=== PATIENT | female | born 1990 | race Caucasian/White ===

== ENCOUNTER 2017-08-20 10:23 | Inpatient (IN) | payer OTHER ==
[2017-08-20 11:05] VITALS: BMI 24.7
--- NOTE | 2017-08-20 15:17 | HP ---
COWS - Scale Resting Pulse: 0= MI 80 or Below Sweatin=Flushed/Facial Moisture Restless Observation: 3= Extraneous Movement Pupil Size: 2= Moderately Dilated Bone or Joint Aches: 2= Severe Diffuse Aches Runny Nose/ Eye Tearin= Runny Nose/Eyes GI Upset > 30mins: 3= Vomiting/Diarrhea Tremor Observation: 2= Slight Tremor Visible Yawning Observation: 2= >3x During Session Anxiety or Irritability: 2=Irritable/Anxious Goose Flesh Skin: 0=Smooth Skin COWS Score: 20 Admission ROS S - HPI Chief Complaint: I NEED HELP TO STOP USING HEROIN,XANAX,COCAINE AND MARIJUANA Allergies/Adverse Reactions: Allergies Allergy/AdvReac Type Severity Reaction Status Date / Time No Known Allergies Allergy Verified 08/20/17 14:56 History of Present Illness: THIS 27 YEARS OLD FEMALE WITH HEROIN,XANAX,CCOAINE,MARIJUANA,SEEKING DETOX, WITHDRAWAL SYMPTOM,NEVER BEEN IN DETOX BEFORE SEIZURE LAST 2016 NICOTINE DEPENDENCE WEIGHT LOSS BIPOLAR,PTSD, PELLET OF RIGHT THIGH SINCE 2013 Exam Limitations: No Limitations - Ebola screening Have you traveled outside of the country in the last 21 days: No (N) Have you had contact with anyone from an Ebola affected area: No Have you been sick,other than usual withdrawal symptoms: No Do you have a fever: No - Review of Systems Constitutional: Chills, Diaphoresis, Loss of Appetite, Malaise, Night Sweats, Changes in sleep, Weakness, Unintentional Wgt. Loss EENT: reports: No Symptoms Reported, Tearing, Nose Congestion Respiratory: reports: No Symptoms reported Cardiac: reports: No Symptoms Reported GI: reports: Diarrhea, Nausea, Vomiting, Abdominal cramping : reports: No Symptoms Reported Musculoskeletal: reports: Back Pain, Joint Pain, Muscle Pain, Joint Stiffness Integumentary: reports: Dryness Neuro: reports: Headache, Tremors Endocrine: reports: No Symptoms Reported Hematology: reports: No Symptoms Reported Psychiatric: reports: No Sypmtoms Reported (BIPOLAR,PTSD), Judgement Intact, Mood/Affect Appropiate, Anxious, Depressed Patient History - Patient Medical History Hx Asthma: No Hx Chronic Obstructive Pulmonary Disease (COPD): No Hx Cardiac Disorders: No Hx Hypertension: No Hx Seizures: Yes (Pt states she has a hx of drug related seizures last 1 yr ago. ) Hx Diabetes: No Hx Gastrointestinal Disorders: Yes (acid reflux.) Hx Genitourinary Disorders: No Hx Sexually Transmitted Disorders: No Hx Renal Disease (ESRD): No Hx Thyroid Disease: No Hx Human Immunodeficiency Virus (HIV): No (LAST 05/28 NEGATIVE) Hx Hepatitis C: No Hx Depression: Yes (ANXIETY) Hx Suicide Attempt: Yes (Pt states she tried to cut her wrist 1 yr ago.) Hx Bipolar Disorder: Yes Hx Schizophrenia: No Other Medical History: NO SUICIDAL,NO HOMICIDAL - Patient Surgical History Past Surgical History: No - PPD History Previous Implant?: Yes Documented Results: Negative w/o proof Implanted On Prior [facility] Admission?: No PPD to be Administered?: Yes - Reproductive History Last Menstrual Period: 07/25/17 Patient : No - Smoking Cessation Smoking history: Current every day smoker Have you smoked in the past 12 months: Yes Aproximately how many cigarettes per day: 40 Hx Chewing Tobacco Use: No Initiated information on smoking cessation: Yes 'Breaking Loose' booklet given: 08/20/17 - Substance & Tx. History Hx Alcohol Use: No Hx Substance Use: Yes Substance Use Type: Cocaine, Heroin, Tranquilizers - Substances Abused Heroin Route: Inhalation Frequency: Daily Amount used: 7-10 bags Age of first use: 26 Date of Last Use: 08/20/17 Alprazolam (Xanax) Route: Oral Frequency: 1-3 times last 30 days Amount used: 6mg Age of first use: 20 Date of Last Use: 08/18/17 Crack Route: Smoking Frequency: Daily Amount used: $200-400 Age of first use: 25 Date of Last Use: 08/17/17 Marijuana/Hashish Route: Smoking Frequency: 1-3 times last 30 days Amount used: 1 joint Age of first use: 14 Date of Last Use: 08/20/17 Family Disease History - Family Disease History Family Disease History: Other: Father (ALCOHOL,SOBER), Mother (DSA) Admission Physical Exam [facility] - Vital Signs Vital Signs: Vital Signs - 24 hr 08/20/17 11:01 Temperature 97.1 F L Pulse Rate 58 L Respiratory 18 Rate Blood Pressure 99/60 - Physical General Appearance: Yes: Moderate Distress, Tremorous, Irritable, Sweating, Anxious HEENTM: Yes: Normal ENT Inspection, Normocephalic, CB Respiratory: Yes: Lungs Clear, Normal Breath Sounds Neck: Yes: Within Normal Limits, Supple, Trachea in good position Breast: Yes: Breast Exam Deferred Cardiology: Yes: Within Normal Limits, Regular Rhythm, S1, S2 Abdominal: Yes: Within Normal Limits, Normal Bowel Sounds, Non Tender, Soft Genitourinary: Yes: Within Normal Limits Musculoskeletal: Yes: full range of Motion, Back pain, Joint Stiffness, Muscle Pain Extremities: Yes: Normal Range of Motion, Tremors, Other (PELLET WOUND OF RIGHT THIGH) 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, Fully Oriented, Alert, Motor Strength 5/5 Integumentary: Yes: Within Normal Limits, Dry Lymphatic: Yes: Within Normal Limits - Diagnostic (1) Opioid dependence with withdrawal Current Visit: Yes Status: Acute (2) Cocaine dependence Current Visit: Yes Status: Acute (3) Uncomplicated sedative, hypnotic or anxiolytic withdrawal Current Visit: Yes Status: Acute (4) Cannabis dependence Current Visit: Yes Status: Acute (5) Nicotine dependence Current Visit: Yes Status: Acute (6) Weight loss Current Visit: Yes Status: Acute (7) Bipolar disorder Current Visit: Yes Status: Acute Cleared for Admission [facility] - Detox or Rehab [facility] Level of Care: Medically Managed Detox Regimen/Protocol: Methadone [facility] Breath Alcohol Content Breath Alcohol Content: 0 Urine Pregancy Test - Result Urine Test Results: Negative- NO Line Present Urine Drug Screen - Results Drug Screen Negative: Yes Urine Drug Screen Results: THC-Marijuana, ALEX-Cocaine, OPI-Opiates, BZO- Benzodiazepines
[2017-08-20] MEDS ORDERED: MAGNESIUM CITRATE 300 ML BOTTLE PO PRN (15:33)
[2017-08-20] MEDS ORDERED: NICOTINE POLACRILEX 2 MG GUM BC PRN (15:33)
[2017-08-20] MEDS ORDERED: IBUPROFEN 400 MG TABLET (FP) PO PRN (15:33)
[2017-08-20] MEDS ORDERED: P-EPHED 60MG/TRIPROLIDI 2.5MG TABLET PO PRN (15:33)
[2017-08-20] MEDS ORDERED: LOPERAMIDE HCL 2 MG CAPSULE PO PRN (15:33)
[2017-08-20] MEDS ORDERED: MAG HYDROX/AL HYDROX/SIMETH 30 ML UNIT-DOSE CUP PO PRN (15:33)
[2017-08-20] MEDS ORDERED: MAGNESIUM HYDROX 2400MG/30ML ORAL SUSPENSION 30 ML CUP PO PRN (15:33)
[2017-08-20] MEDS ORDERED: guaiFENesin/D-METHORPHAN HB 10 ML UNIT-DOSE CUPS PO PRN (15:33)
[2017-08-20] MEDS ORDERED: MENTHOL/PHENOL 1 EACH UD MM PRN (15:33)
--- NOTE | 2017-08-20 15:48 | CONSULT ---
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 SEIZURE LAST 2017. NICOTINE DEPENDENCE. WEIGHT LOSS. BIPOLAR,PTSD, . PELLET OF RIGHT THIGH SINCE 2013 Substance Abuse History: Urine Drug Screen Results: THC-Marijuana, ALEX-Cocaine, OPI-Opiates, BZO-Benzodiazepines- Smoking Cessation. Smoking history: Current every day smoker. Have you smoked in the past 12 months: Yes. Aproximately how many cigarettes per day: 40. Hx Chewing Tobacco Use: No. Initiated information on smoking cessation: Yes. 'Breaking Loose' booklet given: . - Substance & Tx. History. Hx Alcohol Use: No. Hx Substance Use: Yes. Substance Use Type: Cocaine, Heroin, Tranquilizers. - Substances Abused. Heroin. Route: Inhalation. Frequency: Daily. Amount used: 7-10 bags. Age of first use: 26. Date of Last Use: 08/20/17. Alprazolam (Xanax). Route: Oral. Frequency: 1-3 times last 30 days. Amount used: 6mg. Age of first use: 20. Date of Last Use: 08/18/17. Crack. Route: Smoking. Frequency: Daily. Amount used: $200-400. Age of first use: 25. Date of Last Use: 08/17/17. * * Marijuana/Hashish. Route: Smoking. Frequency: 1-3 times last 30 days. Amount used: 1 joint. Age of first use: 14. Date of Last Use: Medical History: Patient reports historty of Seizures, weight loss, Psychiatric History: Patient has history of Bipolar disorder with mopst recent psychiatric admission few months ago at [facility] due to Bipolar exacerbation, reports taking prior to admission: Abilify 5mg poqd. Trazodone 150mg po qhs. Zoloft 100mg poqd. Lamictal 100m,g poqd. Denies suicidal and homicidal ideation Physical/Sexual Abuse/Trauma History: Denies, unclear Additional Comment: Urine Drug Screen Results: THC-Marijuana, ALEX-Cocaine, OPI- Opiates, BZO-Benzodiazepines Mental Status Exam - Mental Status Exam Alert and Oriented to: Place, Person Cognitive Function: Fair Patient Appearance: Well Groomed Mood: Anxious Affect: Mood Congruent Patient Behavior: Cooperative Speech Pattern: Appropriate Voice Loudness: Normal Thought Process: Goal Oriented Thought Disorder: Being Controlled Hallucinations: Denies Suicidal Ideation: Denies Homicidal Ideation: Denies Insight/Judgement: Fair Sleep: Difficulty falling asleep Appetite: Fair Muscle strength/Tone: Normal Gait/Station: Normal Additional Comments: Abilify 5mg poqd. Trazodone 150mg po qhs. Zoloft 100mg poqd. Lamictal 100m,g poqd Psychiatric Findings - Problem List ([place] 1, 2,3) (1) Drug-induced mood disorder Current Visit: Yes Status: Acute (2) Bipolar disorder Current Visit: Yes Status: Acute (3) Cannabis dependence Current Visit: Yes Status: Acute (4) Cocaine dependence Current Visit: Yes Status: Acute (5) Nicotine dependence Current Visit: Yes Status: Acute (6) Opioid dependence with withdrawal Current Visit: Yes Status: Acute (7) Uncomplicated sedative, hypnotic or anxiolytic withdrawal Current Visit: Yes Status: Acute - Initial Treatment Plan Initial Treatment Plan: Abilify 5mg poqd. Trazodone 150mg po qhs. Zoloft 100mg poqd. Lamictal 100m,g poqd
[2017-08-20] MEDS ORDERED: METHADONE HCL 10 MG TABLET (FOR DETOX USE ONLY) PO ONE ×2 (16:00→23:00)
[2017-08-20] MEDS: diazePAM 5 MG TABLET PO PRN (17:48)
[2017-08-20] MEDS: NICOTINE 21 MG/24 HOURS TOPICAL PATCH TD SCH (17:52)
[2017-08-20] MEDS ORDERED: MELATONIN 5 MG TABLETS PO PRN (22:00)
[2017-08-20] MEDS: THIAMINE HCL 100 MG TABLET (FP) PO SCH (22:07)
[2017-08-20] MEDS: traZODone HCL 100 MG TABLET (FP) PO SCH (22:07)
[2017-08-20] MEDS: CYCLOBENZAPRINE HCL 10 MG TABLET (FP) PO PRN (22:07)
[2017-08-20] MEDS: cloNIDine HCL 0.1 MG TABLET PO SCH (22:07)
[2017-08-21 02:25] LABS: URINE APPEARANCE SLCLOUDY; URINE BILIRUBIN NEGATIVE (<2.0 mg/dL); URINE BLOOD NEGATIVE (NEGATIVE); URINE COLOR YELLOW; URINE GLUCOSE (UA) NEGATIVE (NEGATIVE); URINE KETONE NEGATIVE (NEGATIVE); URINE LEUK ESTERASE TRACE (NEGATIVE); URINE NITRITE NEGATIVE (NEGATIVE); URINE PROTEIN NEGATIVE (NEGATIVE)
[2017-08-21 02:39] LABS: EPI CELLS RARE /HPF (FEW); URINE BACTERIA RARE /hpf (NONE SEEN)
--- NOTE | 2017-08-21 09:36 | EKG ---
Test Reason : Blood Pressure : / mmHG Vent. Rate : 047 BPM Atrial Rate : 047 BPM P-R Int : 152 ms QRS Dur : 104 ms QT Int : 440 ms P-R-T Axes : 067 054 037 degrees QTc Int : 389 ms SINUS BRADYCARDIA OTHERWISE NORMAL ECG NO PREVIOUS ECGS AVAILABLE Confirmed by CARLA MG MD ([id number]) on 08/21/2017 9:36:27 AM Referred By: Confirmed By:CARLA GM MD
[2017-08-21] MEDS ORDERED: METHADONE HCL 10 MG TABLET (FOR DETOX USE ONLY) PO ONE (10:00)
[2017-08-21 10:04] LABS: CHLORIDE 102 mmol/L (98-107); POTASSIUM 4.1 mmol/L (3.5-5.1); SODIUM 140 mmol/L (136-145)
[2017-08-21 10:05] LABS: HEMATOCRIT 41.3 % (32.4-45.2); MCH 34.2 pg (25.7-33.7); MCHC 33.9 g/dl (32.0-36.0); MEAN CELL VOLUME 100.9 fl (80-96); MEAN PLT VOLUME 10.8 fl (7.5-11.1); PLATELET COUNT 199 K/MM3 (134-434); RDW 13.8 % (11.6-15.6); WHITE BLOOD COUNT 10.9 K/mm3 (4.0-10.0)
[2017-08-21] MEDS: ARIPiprazole 5 MG TABLET (FP) PO SCH (10:21)
[2017-08-21] MEDS: SERTRALINE HCL 50 MG TABLET (FP) PO SCH (10:21)
[2017-08-21 10:22] LABS: ALBUMIN 4.3 g/dl (3.4-5.0); ALK PHOS 50 U/L (45-117); ANION GAP 7 (8-16); BILIRUBIN,TOTAL 0.2 mg/dL (0.2-1.0); BLOOD UREA NITROGEN 14 mg/dL (7-18); CALCIUM 9.1 mg/dL (8.5-10.1); CO2 31 mmol/L (21-32); CREATININE 0.9 mg/dL (0.55-1.02); GLUCOSE,RANDOM 74 mg/dL (74-106); SGOT/AST 18 U/L (15-37); SGPT/ALT 18 U/L (12-78); TOT PROT 7.1 g/dl (6.4-8.2)
[2017-08-21] MEDS: PANTOPRAZOLE 40 MG TABLET (FP) PO SCH (10:22)
[2017-08-21] MEDS: cloNIDine HCL 0.1 MG TABLET PO SCH ×2 (10:22→22:18)
[2017-08-21] MEDS: NICOTINE 21 MG/24 HOURS TOPICAL PATCH TD SCH (10:22)
[2017-08-21] MEDS: PRENATAL VITAMINS W/ FOLIC ACID TABLET (FP) PO SCH (10:22)
[2017-08-21] MEDS: lamoTRIgine 100 MG TABLET (FP) PO SCH (10:22)
--- NOTE | 2017-08-21 10:29 | PN ---
S COWS - Scale Resting Pulse: 1= NM 81-100 Sweatin= Chills/Flushing Restless Observation: 1= Difficult to Sit Still Pupil Size: 1= Pupils >than Normal Bone or Joint Aches: 1= Mild Discomfort Runny Nose/ Eye Tearin= Nasal Congestion GI Upset > 30mins: 2= Nausea/Diarrhea Tremor Observation of Outstretched Hands: 1= Tremor [place], Not Seen Yawning Observation: 1= 1-2x During Session Anxiety or Irritability: 2=Irritable/Anxious Goose Flesh Skin: 0=Smooth Skin COWS Score: 12 S Progress Note (SOAP) Subjective: nausea, sweats, interrutpedsleep, anxiety, tremros Objective: 08/21/17 10:29 Vital Signs - 24 hr 08/20/17 08/20/17 08/20/17 11:01 18:42 22:04 Temperature 97.1 F L 98.2 F 99.0 F Pulse Rate 58 L 119 H 47 L Respiratory 18 18 20 Rate Blood Pressure 99/60 107/58 124/72 08/21/17 08/21/17 08/21/17 00:30 03:30 06:00 Temperature 97.9 F Pulse Rate 46 L Respiratory 18 18 18 Rate Blood Pressure 106/55 08/21/17 10:08 Temperature 97.9 F Pulse Rate 47 L Respiratory 16 Rate Blood Pressure 106/51 Laboratory Tests 08/21/17 08/21/17 08/21/17 00:05 06:00 06:00 WBC 10.9 H RBC 4.10 Hgb 14.0 Hct 41.3 MCV 100.9 H MCH 34.2 H MCHC 33.9 RDW 13.8 Plt Count 199 MPV 10.8 Sodium 140 Potassium 4.1 Chloride 102 Carbon Dioxide 31 Anion Gap 7 L BUN 14 Creatinine 0.9 Creat Clearance w eGFR > 60 Random Glucose 74 Calcium 9.1 Total Bilirubin 0.2 AST 18 ALT 18 Alkaline Phosphatase 50 Total Protein 7.1 Albumin 4.3 Urine Color Yellow Urine Appearance Slcloudy Urine pH 5.0 Ur Specific [place] 1.017 Urine Protein Negative Urine Glucose (UA) Negative Urine Ketones Negative Urine Blood Negative Urine Nitrite Negative Urine Bilirubin Negative Urine Urobilinogen 2.0 H Ur Leukocyte Esterase Trace Urine WBC (Auto) 2 Urine RBC (Auto) 1 Ur Epithelial Cells Rare Urine Bacteria Rare Assessment: 08/21/17 10:29 withdrawal sx, cont detox, fluids, encourage ambualtion
[2017-08-21] MEDS: diazePAM 5 MG TABLET PO PRN ×3 (12:27→22:18)
[2017-08-21] MEDS: ACETAMINOPHEN 325 MG TABLET (FP) PO PRN (17:49)
[2017-08-21] MEDS: CYCLOBENZAPRINE HCL 10 MG TABLET (FP) PO PRN (22:18)
[2017-08-21] MEDS: traZODone HCL 100 MG TABLET (FP) PO SCH (22:18)
[2017-08-21] MEDS: THIAMINE HCL 100 MG TABLET (FP) PO SCH (22:18)
[2017-08-22] MEDS ORDERED: METHADONE HCL 5 MG TABLET (FOR DETOX USE ONLY) PO ONE (10:00)
[2017-08-22] MEDS: SERTRALINE HCL 50 MG TABLET (FP) PO SCH (10:55)
[2017-08-22] MEDS: PRENATAL VITAMINS W/ FOLIC ACID TABLET (FP) PO SCH (10:55)
[2017-08-22] MEDS: lamoTRIgine 100 MG TABLET (FP) PO SCH (10:55)
[2017-08-22] MEDS: NICOTINE 21 MG/24 HOURS TOPICAL PATCH TD SCH (10:56)
[2017-08-22] MEDS: cloNIDine HCL 0.1 MG TABLET PO SCH ×2 (10:56→22:12)
[2017-08-22] MEDS: PANTOPRAZOLE 40 MG TABLET (FP) PO SCH (10:56)
[2017-08-22] MEDS: ARIPiprazole 5 MG TABLET (FP) PO SCH (10:56)
[2017-08-22] MEDS: diazePAM 5 MG TABLET PO PRN ×2 (14:09→22:12)
--- NOTE | 2017-08-22 15:30 | PN ---
S CIWA - CIWA Score Nausea/Vomitin Muscle Tremors: 3 Anxiety: 3 Agitation: 3 Paroxysmal Sweats: 1-Minimal Palms Moist Orientation: 0-Oriented Tacttile Disturbances: 1-Very Mild Itch/Numbness Auditory Disturbances: 1-Very Mild Visual Disturbances: 0-None Headache: 2-Mild CIWA-Ar Total Score: 17 BHS COWS - Scale Resting Pulse: 0= MI 80 or Below Sweatin= Chills/Flushing Restless Observation: 3= Extraneous Movement Pupil Size: 1= Pupils >than Normal Bone or Joint Aches: 2= Severe Diffuse Aches Runny Nose/ Eye Tearin= Runny Nose/Eyes GI Upset > 30mins: 2= Nausea/Diarrhea Tremor Observation of Outstretched Hands: 2= Slight Tremor Visible Yawning Observation: 1= 1-2x During Session Anxiety or Irritability: 2=Irritable/Anxious Goose Flesh Skin: 0=Smooth Skin COWS Score: 16 S Progress Note (SOAP) Subjective: ALERT,IRRITABLE,ANXIOUS,INTERRUPTED SLEEP,PAIN IN THE BODY AND BACK Objective: 08/22/17 15:29 Vital Signs Temperature 97.1 F L 08/22/17 11:08 Pulse Rate 82 08/22/17 11:08 Respiratory Rate 20 08/22/17 11:08 Blood Pressure 115/72 08/22/17 11:08 O2 Sat by Pulse Oximetry (%) Laboratory Last Values WBC 10.9 K/mm3 (4.0-10.0) H 08/21/17 06:00 RBC 4.10 M/mm3 (3.60-5.2) 08/21/17 06:00 Hgb 14.0 GM/dL (10.7-15.3) 08/21/17 06:00 Hct 41.3 % (32.4-45.2) 08/21/17 06:00 MCV 100.9 fl (80-96) H 08/21/17 06:00 MCH 34.2 pg (25.7-33.7) H 08/21/17 06:00 MCHC 33.9 g/dl (32.0-36.0) 08/21/17 06:00 RDW 13.8 % (11.6-15.6) 08/21/17 06:00 Plt Count 199 K/MM3 (134-434) 08/21/17 06:00 MPV 10.8 fl (7.5-11.1) 08/21/17 06:00 Sodium 140 mmol/L (136-145) 08/21/17 06:00 Potassium 4.1 mmol/L (3.5-5.1) 08/21/17 06:00 Chloride 102 mmol/L (98-107) 08/21/17 06:00 Carbon Dioxide 31 mmol/L (21-32) 08/21/17 06:00 Anion Gap 7 (8-16) L 08/21/17 06:00 BUN 14 mg/dL (7-18) 08/21/17 06:00 Creatinine 0.9 mg/dL (0.55-1.02) 08/21/17 06:00 Creat Clearance w eGFR > 60 (>60) 08/21/17 06:00 Random Glucose 74 mg/dL (74-106) 08/21/17 06:00 Calcium 9.1 mg/dL (8.5-10.1) 08/21/17 06:00 Total Bilirubin 0.2 mg/dL (0.2-1.0) 08/21/17 06:00 AST 18 U/L (15-37) 08/21/17 06:00 ALT 18 U/L (12-78) 08/21/17 06:00 Alkaline Phosphatase 50 U/L (45-117) 08/21/17 06:00 Total Protein 7.1 g/dl (6.4-8.2) 08/21/17 06:00 Albumin 4.3 g/dl (3.4-5.0) 08/21/17 06:00 Urine Color Yellow 08/21/17 00:05 Urine Appearance Slcloudy 08/21/17 00:05 Urine pH 5.0 (5.0-8.0) 08/21/17 00:05 Ur Specific [place] 1.017 (1.001-1.035) 08/21/17 00:05 Urine Protein Negative (NEGATIVE) 08/21/17 00:05 Urine Glucose (UA) Negative (NEGATIVE) 08/21/17 00:05 Urine Ketones Negative (NEGATIVE) 08/21/17 00:05 Urine Blood Negative (NEGATIVE) 08/21/17 00:05 Urine Nitrite Negative (NEGATIVE) 08/21/17 00:05 Urine Bilirubin Negative (<2.0 mg/dL) 08/21/17 00:05 Urine Urobilinogen 2.0 mg/dL (0.2-1.0) H 08/21/17 00:05 Ur Leukocyte Esterase Trace (NEGATIVE) 08/21/17 00:05 Urine WBC (Auto) 2 /hpf (3-5) 08/21/17 00:05 Urine RBC (Auto) 1 /hpf (0-3) 08/21/17 00:05 Ur Epithelial Cells Rare /HPF (FEW) 08/21/17 00:05 Urine Bacteria Rare /hpf (NONE SEEN) 08/21/17 00:05 RPR Titer Nonreactive (NONREACTIVE) 08/21/17 06:00 Assessment: 08/22/17 15:30 WITHDRAWAL SYMPTOM Plan: CONTINUE DETOX
[2017-08-22] MEDS: CYCLOBENZAPRINE HCL 10 MG TABLET (FP) PO PRN (22:12)
[2017-08-22] MEDS: THIAMINE HCL 100 MG TABLET (FP) PO SCH (22:12)
[2017-08-22] MEDS: traZODone HCL 100 MG TABLET (FP) PO SCH (22:12)
[2017-08-23] MEDS ORDERED: METHADONE HCL 5 MG TABLET (FOR DETOX USE ONLY) PO ONE (10:00)
[2017-08-23] MEDS: SERTRALINE HCL 50 MG TABLET (FP) PO SCH (10:53)
[2017-08-23] MEDS: ARIPiprazole 5 MG TABLET (FP) PO SCH (10:54)
[2017-08-23] MEDS: cloNIDine HCL 0.1 MG TABLET PO SCH ×2 (10:54→22:47)
[2017-08-23] MEDS: lamoTRIgine 100 MG TABLET (FP) PO SCH (10:54)
[2017-08-23] MEDS: PRENATAL VITAMINS W/ FOLIC ACID TABLET (FP) PO SCH (10:54)
[2017-08-23] MEDS: PANTOPRAZOLE 40 MG TABLET (FP) PO SCH (10:54)
[2017-08-23] MEDS: NICOTINE 21 MG/24 HOURS TOPICAL PATCH TD SCH (10:55)
[2017-08-23] MEDS: diazePAM 5 MG TABLET PO PRN (10:56)
--- NOTE | 2017-08-23 13:40 | PN ---
BHS Progress Note (SOAP) Subjective: joint pain muscle aches sweat tremor anxiety restlessness stuffy nose Objective: 08/23/17 13:39 Vital Signs Temperature 97.9 F 08/23/17 12:13 Pulse Rate 61 08/23/17 12:13 Respiratory Rate 18 08/23/17 12:13 Blood Pressure 97/57 08/23/17 12:13 O2 Sat by Pulse Oximetry (%) Laboratory Last Values WBC 10.9 K/mm3 (4.0-10.0) H 08/21/17 06:00 RBC 4.10 M/mm3 (3.60-5.2) 08/21/17 06:00 Hgb 14.0 GM/dL (10.7-15.3) 08/21/17 06:00 Hct 41.3 % (32.4-45.2) 08/21/17 06:00 MCV 100.9 fl (80-96) H 08/21/17 06:00 MCH 34.2 pg (25.7-33.7) H 08/21/17 06:00 MCHC 33.9 g/dl (32.0-36.0) 08/21/17 06:00 RDW 13.8 % (11.6-15.6) 08/21/17 06:00 Plt Count 199 K/MM3 (134-434) 08/21/17 06:00 MPV 10.8 fl (7.5-11.1) 08/21/17 06:00 Sodium 140 mmol/L (136-145) 08/21/17 06:00 Potassium 4.1 mmol/L (3.5-5.1) 08/21/17 06:00 Chloride 102 mmol/L (98-107) 08/21/17 06:00 Carbon Dioxide 31 mmol/L (21-32) 08/21/17 06:00 Anion Gap 7 (8-16) L 08/21/17 06:00 BUN 14 mg/dL (7-18) 08/21/17 06:00 Creatinine 0.9 mg/dL (0.55-1.02) 08/21/17 06:00 Creat Clearance w eGFR > 60 (>60) 08/21/17 06:00 Random Glucose 74 mg/dL (74-106) 08/21/17 06:00 Calcium 9.1 mg/dL (8.5-10.1) 08/21/17 06:00 Total Bilirubin 0.2 mg/dL (0.2-1.0) 08/21/17 06:00 AST 18 U/L (15-37) 08/21/17 06:00 ALT 18 U/L (12-78) 08/21/17 06:00 Alkaline Phosphatase 50 U/L (45-117) 08/21/17 06:00 Total Protein 7.1 g/dl (6.4-8.2) 08/21/17 06:00 Albumin 4.3 g/dl (3.4-5.0) 08/21/17 06:00 Urine Color Yellow 08/21/17 00:05 Urine Appearance Slcloudy 08/21/17 00:05 Urine pH 5.0 (5.0-8.0) 08/21/17 00:05 Ur Specific [place] 1.017 (1.001-1.035) 08/21/17 00:05 Urine Protein Negative (NEGATIVE) 08/21/17 00:05 Urine Glucose (UA) Negative (NEGATIVE) 08/21/17 00:05 Urine Ketones Negative (NEGATIVE) 08/21/17 00:05 Urine Blood Negative (NEGATIVE) 08/21/17 00:05 Urine Nitrite Negative (NEGATIVE) 08/21/17 00:05 Urine Bilirubin Negative (<2.0 mg/dL) 08/21/17 00:05 Urine Urobilinogen 2.0 mg/dL (0.2-1.0) H 08/21/17 00:05 Ur Leukocyte Esterase Trace (NEGATIVE) 08/21/17 00:05 Urine WBC (Auto) 2 /hpf (3-5) 08/21/17 00:05 Urine RBC (Auto) 1 /hpf (0-3) 08/21/17 00:05 Ur Epithelial Cells Rare /HPF (FEW) 08/21/17 00:05 Urine Bacteria Rare /hpf (NONE SEEN) 08/21/17 00:05 RPR Titer Nonreactive (NONREACTIVE) 08/21/17 06:00 lab noted Assessment: 08/23/17 13:39 withdrawal sx Plan: continue detox
[2017-08-23] MEDS: ACETAMINOPHEN 325 MG TABLET (FP) PO PRN (17:51)
[2017-08-23] MEDS: hydrOXYzine PAMOATE 50 MG CAPSULE (FP) PO PRN (17:52)
[2017-08-23] MEDS: traZODone HCL 100 MG TABLET (FP) PO SCH (22:28)
[2017-08-23] MEDS: THIAMINE HCL 100 MG TABLET (FP) PO SCH (22:28)
[2017-08-23] MEDS: CYCLOBENZAPRINE HCL 10 MG TABLET (FP) PO PRN (22:28)
[2017-08-24] MEDS ORDERED: METHADONE HCL 10 MG TABLET (FOR DETOX USE ONLY) PO ONE (10:00)
[2017-08-24] MEDS: PRENATAL VITAMINS W/ FOLIC ACID TABLET (FP) PO SCH (10:19)
[2017-08-24] MEDS: PANTOPRAZOLE 40 MG TABLET (FP) PO SCH (10:19)
[2017-08-24] MEDS: ARIPiprazole 5 MG TABLET (FP) PO SCH (10:19)
[2017-08-24] MEDS: cloNIDine HCL 0.1 MG TABLET PO SCH ×2 (10:19→22:15)
[2017-08-24] MEDS: SERTRALINE HCL 50 MG TABLET (FP) PO SCH (10:19)
[2017-08-24] MEDS: NICOTINE 21 MG/24 HOURS TOPICAL PATCH TD SCH (10:19)
[2017-08-24] MEDS: lamoTRIgine 100 MG TABLET (FP) PO SCH (10:19)
--- NOTE | 2017-08-24 12:20 | PN ---
BHS Progress Note (SOAP) Subjective: Sleep disturbance Objective: 08/24/17 12:19 A & O x 3 Vital Signs Temperature 97.9 F 08/24/17 10:19 Pulse Rate 63 08/24/17 10:19 Respiratory Rate 18 08/24/17 10:19 Blood Pressure 95/56 08/24/17 10:19 O2 Sat by Pulse Oximetry (%) denies dizziness Assessment: 08/24/17 12:20 withdrawal sx Plan: continue detox
--- NOTE | 2017-08-24 12:45 | EKG ---
Test Reason : Blood Pressure : / mmHG Vent. Rate : 043 BPM Atrial Rate : 043 BPM P-R Int : 154 ms QRS Dur : 094 ms QT Int : 460 ms P-R-T Axes : 065 053 048 degrees QTc Int : 388 ms MARKED SINUS BRADYCARDIA ABNORMAL ECG WHEN COMPARED WITH ECG OF 20-AUG-2017 17:58, NONSPECIFIC T WAVE ABNORMALITY NO LONGER EVIDENT IN ANTERIOR LEADS Confirmed by ALEX FRANCO MD ([id number]) on 08/24/2017 12:45:32 PM Referred By: Confirmed By:ALEX FRANCO MD
[2017-08-24] MEDS: THIAMINE HCL 100 MG TABLET (FP) PO SCH (22:15)
[2017-08-24] MEDS: traZODone HCL 100 MG TABLET (FP) PO SCH (22:15)
[2017-08-24] MEDS: CYCLOBENZAPRINE HCL 10 MG TABLET (FP) PO PRN (22:15)
[2017-08-24] MEDS: hydrOXYzine PAMOATE 50 MG CAPSULE (FP) PO PRN (22:16)
[2017-08-24] MEDS: ACETAMINOPHEN 325 MG TABLET (FP) PO PRN (22:16)
[2017-08-25] MEDS ORDERED: METHADONE HCL 5 MG TABLET (FOR DETOX USE ONLY) PO ONE (06:00)
[2017-08-25] MEDS: lamoTRIgine 100 MG TABLET (FP) PO SCH (09:33)
[2017-08-25] MEDS: SERTRALINE HCL 50 MG TABLET (FP) PO SCH (09:33)
[2017-08-25] MEDS: PRENATAL VITAMINS W/ FOLIC ACID TABLET (FP) PO SCH (09:34)
[2017-08-25] MEDS: PANTOPRAZOLE 40 MG TABLET (FP) PO SCH (09:34)
[2017-08-25] MEDS: ARIPiprazole 5 MG TABLET (FP) PO SCH (09:34)
[2017-08-25 10:19] VITALS: BP 118/64; PULSE 78; TEMP 98
--- NOTE | 2017-08-25 10:24 | DS ---
[facility] Detox Discharge Summary Admission Date: 08/20/17 Discharge Date: 08/25/17 - History Present History: Opioid Dependence Additional Comments: 27 years old female admitted on 08/20/17 for opioid detox completed detox regimen tolerated well patient denies opioid withdrawal sx alert oriented x 3 no acute distress patient agrees to go to [facility] for medical and psychuiatric follow up - Physical Exam Results Vital Signs: Vital Signs Temperature 98 F 08/25/17 10:19 Pulse Rate 78 08/25/17 10:19 Respiratory Rate 18 08/25/17 10:19 Blood Pressure 118/64 08/25/17 10:19 O2 Sat by Pulse Oximetry (%) Pertinent Admission Physical Exam Findings: withdrawal sx Vital Signs Temperature 98 F 08/25/17 10:19 Pulse Rate 78 08/25/17 10:19 Respiratory Rate 18 08/25/17 10:19 Blood Pressure 118/64 08/25/17 10:19 O2 Sat by Pulse Oximetry (%) Laboratory Last Values WBC 10.9 K/mm3 (4.0-10.0) H 08/21/17 06:00 RBC 4.10 M/mm3 (3.60-5.2) 08/21/17 06:00 Hgb 14.0 GM/dL (10.7-15.3) 08/21/17 06:00 Hct 41.3 % (32.4-45.2) 08/21/17 06:00 MCV 100.9 fl (80-96) H 08/21/17 06:00 MCH 34.2 pg (25.7-33.7) H 08/21/17 06:00 MCHC 33.9 g/dl (32.0-36.0) 08/21/17 06:00 RDW 13.8 % (11.6-15.6) 08/21/17 06:00 Plt Count 199 K/MM3 (134-434) 08/21/17 06:00 MPV 10.8 fl (7.5-11.1) 08/21/17 06:00 Sodium 140 mmol/L (136-145) 08/21/17 06:00 Potassium 4.1 mmol/L (3.5-5.1) 08/21/17 06:00 Chloride 102 mmol/L (98-107) 08/21/17 06:00 Carbon Dioxide 31 mmol/L (21-32) 08/21/17 06:00 Anion Gap 7 (8-16) L 08/21/17 06:00 BUN 14 mg/dL (7-18) 08/21/17 06:00 Creatinine 0.9 mg/dL (0.55-1.02) 08/21/17 06:00 Creat Clearance w eGFR > 60 (>60) 08/21/17 06:00 Random Glucose 74 mg/dL (74-106) 08/21/17 06:00 Calcium 9.1 mg/dL (8.5-10.1) 08/21/17 06:00 Total Bilirubin 0.2 mg/dL (0.2-1.0) 08/21/17 06:00 AST 18 U/L (15-37) 08/21/17 06:00 ALT 18 U/L (12-78) 08/21/17 06:00 Alkaline Phosphatase 50 U/L (45-117) 08/21/17 06:00 Total Protein 7.1 g/dl (6.4-8.2) 08/21/17 06:00 Albumin 4.3 g/dl (3.4-5.0) 08/21/17 06:00 Urine Color Yellow 08/21/17 00:05 Urine Appearance Slcloudy 08/21/17 00:05 Urine pH 5.0 (5.0-8.0) 08/21/17 00:05 Ur Specific [place] 1.017 (1.001-1.035) 08/21/17 00:05 Urine Protein Negative (NEGATIVE) 08/21/17 00:05 Urine Glucose (UA) Negative (NEGATIVE) 08/21/17 00:05 Urine Ketones Negative (NEGATIVE) 08/21/17 00:05 Urine Blood Negative (NEGATIVE) 08/21/17 00:05 Urine Nitrite Negative (NEGATIVE) 08/21/17 00:05 Urine Bilirubin Negative (<2.0 mg/dL) 08/21/17 00:05 Urine Urobilinogen 2.0 mg/dL (0.2-1.0) H 08/21/17 00:05 Ur Leukocyte Esterase Trace (NEGATIVE) 08/21/17 00:05 Urine WBC (Auto) 2 /hpf (3-5) 08/21/17 00:05 Urine RBC (Auto) 1 /hpf (0-3) 08/21/17 00:05 Ur Epithelial Cells Rare /HPF (FEW) 08/21/17 00:05 Urine Bacteria Rare /hpf (NONE SEEN) 08/21/17 00:05 RPR Titer Nonreactive (NONREACTIVE) 08/21/17 06:00 lab noted - Treatment Hospital Course: Detox Protocol Followed, Detoxed Safely, Responded well, Discharged Condition Good, Rehab Referral Accepted Patient has Accepted a Rehab Referral to: [facility] - Medication Discharge Medications: Ambulatory Orders Aripiprazole [Abilify -] 5 mg PO DAILY #30 tablet 08/20/17 Lamotrigine [LaMICtal -] 100 mg PO DAILY #30 tablet 08/20/17 Sertraline HCl [Zoloft -] 100 mg PO DAILY #30 tablet 08/20/17 Trazodone HCl 100 mg PO HS #30 tablet 08/20/17 Omeprazole Magnesium [Prilosec Otc] 20 mg PO DAILY #30 tablet. 08/25/17 - Diagnosis (1) Bipolar disorder Current Visit: Yes Status: Suspected Qualifiers: Active/Remission status: in partial remission Most recent bipolar episode type: mixed Qualified Code(s): F31.77 - Bipolar disorder, in partial remission , most recent episode mixed (2) Nicotine dependence Current Visit: Yes Status: Acute Qualifiers: Nicotine product type: cigarettes Substance use status: in withdrawal Qualified Code(s): F17.213 - Nicotine dependence, cigarettes, with withdrawal (3) Opioid dependence with withdrawal Current Visit: Yes Status: Acute - AMA Did Patient Leave Against Medical Advice: No
== END 2017-08-25 09:40 | disposition home or self-care (01) | DRG 773 ==
LOC: YASAS 10:23 → Y6N 15:24
PROVIDERS: ADMIT Internal Medicine; ATTEND Internal Medicine
PROC: HZ2ZZZZ Detoxification Services for Substance Abuse Treatment (ICD-10-PCS; principal; 2017-08-20)
DX: F11.23 Opioid dependence with withdrawal (principal); F13.230 Sedative, hypnotic or anxiolytic dependence with withdrawal, uncomplicated; F14.20 Cocaine dependence, uncomplicated; F12.20 Cannabis dependence, uncomplicated; F17.213 Nicotine dependence, cigarettes, with withdrawal; F31.77 Bipolar disorder, in partial remission, most recent episode mixed; F19.24 Other psychoactive substance dependence with psychoactive substance-induced mood disorder; R63.4 Abnormal weight loss; Z68.24 Body mass index [BMI] 24.0-24.9, adult; Z91.5 Personal history of self-harm; Z86.69 Personal history of other diseases of the nervous system and sense organs
CPT/HCPCS: 36415; 80053; 81003; 81015; 85027; 86593; 93005; 93010; J0735

== ENCOUNTER 2018-01-17 11:12 | Inpatient (IN) | payer OTHER ==
[2018-01-17 13:21] VITALS: BMI 26.8
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
[2018-01-17] MEDS ORDERED: MAG HYDROX/AL HYDROX/SIMETH 30 ML UNIT-DOSE CUP PO PRN (17:29)
[2018-01-17] MEDS ORDERED: guaiFENesin/D-METHORPHAN HB 10 ML UNIT-DOSE CUPS PO PRN (17:29)
[2018-01-17] MEDS ORDERED: MAGNESIUM HYDROX 2400MG/30ML ORAL SUSPENSION 30 ML CUP PO PRN (17:29)
[2018-01-17] MEDS ORDERED: IBUPROFEN 400 MG TABLET (FP) PO PRN (17:29)
[2018-01-17] MEDS ORDERED: MAGNESIUM CITRATE 300 ML BOTTLE PO PRN (17:29)
[2018-01-17] MEDS ORDERED: MENTHOL/PHENOL 1 EACH UD MM PRN (17:29)
[2018-01-17] MEDS ORDERED: P-EPHED 60MG/TRIPROLIDI 2.5MG TABLET PO PRN (17:29)
[2018-01-17] MEDS ORDERED: ACETAMINOPHEN 325 MG TABLET (FP) PO PRN (17:29)
[2018-01-17] MEDS ORDERED: diazePAM 5 MG TABLET PO ONE (17:29)
[2018-01-17] MEDS ORDERED: LOPERAMIDE HCL 2 MG CAPSULE PO PRN (17:29)
[2018-01-17] MEDS: NICOTINE 21 MG/24 HOURS TOPICAL PATCH TD SCH (18:29)
[2018-01-17 21:43] LABS: URINE APPEARANCE CLEAR; URINE BILIRUBIN NEGATIVE (<2.0 mg/dL); URINE COLOR STRAW; URINE GLUCOSE (UA) NEGATIVE (NEGATIVE); URINE KETONE NEGATIVE (NEGATIVE); URINE LEUK ESTERASE NEGATIVE (NEGATIVE); URINE NITRITE NEGATIVE (NEGATIVE); URINE PROTEIN NEGATIVE (NEGATIVE); URINE UROBILINOGEN NEGATIVE mg/dL (0.2-1.0)
[2018-01-17] MEDS ORDERED: MELATONIN 5 MG TABLETS PO PRN (22:00)
[2018-01-17] MEDS: THIAMINE HCL 100 MG TABLET (FP) PO SCH (22:47)
[2018-01-17] MEDS: diazePAM 5 MG TABLET PO SCH (22:47)
[2018-01-18] MEDS: diazePAM 5 MG TABLET PO SCH ×3 (05:12→22:08)
[2018-01-18 10:14] LABS: HEMATOCRIT 41.1 % (32.4-45.2); HEMOGLOBIN 13.8 GM/dL (10.7-15.3); MCH 32.8 pg (25.7-33.7); MCHC 33.5 g/dl (32.0-36.0); MEAN CELL VOLUME 98.1 fl (80-96); MEAN PLT VOLUME 9.1 fl (7.5-11.1); PLATELET COUNT 220 K/MM3 (134-434); RBC 4.19 M/mm3 (3.60-5.2); RDW 13.7 % (11.6-15.6)
[2018-01-18] MEDS: PRENATAL VITAMINS W/ FOLIC ACID TABLET (FP) PO SCH (10:16)
[2018-01-18] MEDS: NICOTINE POLACRILEX 4 MG GUM BC PRN ×3 (10:16→21:06)
[2018-01-18] MEDS: NICOTINE 21 MG/24 HOURS TOPICAL PATCH TD SCH (10:16)
[2018-01-18] MEDS: diazePAM 5 MG TABLET PO PRN (10:17)
[2018-01-18 10:24] LABS: ALBUMIN 3.4 g/dl (3.4-5.0); ANION GAP 8 MMOL/L (8-16); BLOOD UREA NITROGEN 9 mg/dL (7-18); CALCIUM 8.6 mg/dL (8.5-10.1); CHLORIDE 106 mmol/L (98-107); CO2 28 mmol/L (21-32); CREATININE 0.8 mg/dL (0.55-1.02); GLUCOSE,RANDOM 81 mg/dL (74-106); POTASSIUM 4.1 mmol/L (3.5-5.1); SGOT/AST 14 U/L (15-37); SGPT/ALT 15 U/L (12-78); SODIUM 142 mmol/L (136-145)
[2018-01-18 10:26] LABS: ALK PHOS 46 U/L (45-117); BILIRUBIN,TOTAL 0.4 mg/dL (0.2-1.0)
--- NOTE | 2018-01-18 11:23 | EKG ---
Test Reason : Blood Pressure : / mmHG Vent. Rate : 085 BPM Atrial Rate : 085 BPM P-R Int : 168 ms QRS Dur : 104 ms QT Int : 374 ms P-R-T Axes : 057 048 047 degrees QTc Int : 445 ms NORMAL SINUS RHYTHM NORMAL ECG WHEN COMPARED WITH ECG OF 21-AUG-2017 09:00, VENT. RATE HAS INCREASED BY 42 BPM Confirmed by JACEK LAI MD ([id number]) on 01/18/2018 11:22:57 AM Referred By: Confirmed By:JACEK LAI MD
--- NOTE | 2018-01-18 13:41 | PN ---
[facility] CIWA - CIWA Score Nausea/Vomitin-Mild Nausea/No Vomiting Muscle Tremors: 4-Moderate,w/Arms Extend Anxiety: 3 Agitation: 3 Paroxysmal Sweats: 1-Minimal Palms Moist Orientation: 0-Oriented Tacttile Disturbances: 1-Very Mild Itch/Numbness Auditory Disturbances: 1-Very Mild Visual Disturbances: 0-None Headache: 0-None Present CIWA-Ar Total Score: 14 BHS Progress Note (SOAP) Subjective: sweat tremor anxiety restlessness trouble sitting still for art therapy Objective: 01/18/18 13:42 alcohol and benzo withdrawal sx Vital Signs Temperature 98.2 F 01/18/18 13:24 Pulse Rate 67 01/18/18 13:24 Respiratory Rate 18 01/18/18 13:24 Blood Pressure 120/56 01/18/18 13:24 O2 Sat by Pulse Oximetry (%) Laboratory Last Values WBC 7.0 K/mm3 (4.0-10.0) 01/18/18 07:00 RBC 4.19 M/mm3 (3.60-5.2) 01/18/18 07:00 Hgb 13.8 GM/dL (10.7-15.3) 01/18/18 07:00 Hct 41.1 % (32.4-45.2) 01/18/18 07:00 MCV 98.1 fl (80-96) H 01/18/18 07:00 MCH 32.8 pg (25.7-33.7) 01/18/18 07:00 MCHC 33.5 g/dl (32.0-36.0) 01/18/18 07:00 RDW 13.7 % (11.6-15.6) 01/18/18 07:00 Plt Count 220 K/MM3 (134-434) 01/18/18 07:00 MPV 9.1 fl (7.5-11.1) D 01/18/18 07:00 Sodium 142 mmol/L (136-145) 01/18/18 07:00 Potassium 4.1 mmol/L (3.5-5.1) 01/18/18 07:00 Chloride 106 mmol/L (98-107) 01/18/18 07:00 Carbon Dioxide 28 mmol/L (21-32) 01/18/18 07:00 Anion Gap 8 MMOL/L (8-16) 01/18/18 07:00 BUN 9 mg/dL (7-18) 01/18/18 07:00 Creatinine 0.8 mg/dL (0.55-1.02) 01/18/18 07:00 Creat Clearance w eGFR > 60 (>60) 01/18/18 07:00 Random Glucose 81 mg/dL (74-106) 01/18/18 07:00 Calcium 8.6 mg/dL (8.5-10.1) 01/18/18 07:00 Total Bilirubin 0.4 mg/dL (0.2-1.0) 01/18/18 07:00 AST 14 U/L (15-37) L 01/18/18 07:00 ALT 15 U/L (12-78) 01/18/18 07:00 Alkaline Phosphatase 46 U/L (45-117) 01/18/18 07:00 Total Protein 6.0 g/dl (6.4-8.2) L 01/18/18 07:00 Albumin 3.4 g/dl (3.4-5.0) 01/18/18 07:00 Urine Color Straw 01/17/18 18:00 Urine Appearance Clear 01/17/18 18:00 Urine pH 6.0 (5.0-8.0) 01/17/18 18:00 Ur Specific [place] 1.002 (1.001-1.035) 01/17/18 18:00 Urine Protein Negative (NEGATIVE) 01/17/18 18:00 Urine Glucose (UA) Negative (NEGATIVE) 01/17/18 18:00 Urine Ketones Negative (NEGATIVE) 01/17/18 18:00 Urine Blood Negative (NEGATIVE) 01/17/18 18:00 Urine Nitrite Negative (NEGATIVE) 01/17/18 18:00 Urine Bilirubin Negative (<2.0 mg/dL) 01/17/18 18:00 Urine Urobilinogen Negative mg/dL (0.2-1.0) 01/17/18 18:00 Ur Leukocyte Esterase Negative (NEGATIVE) 01/17/18 18:00 RPR Titer Nonreactive (NONREACTIVE) 01/18/18 07:00 lab noted Assessment: 01/18/18 13:42 withdrawal sx Plan: continue detox
--- NOTE | 2018-01-18 17:29 | CONSULT ---
[facility] Psychiatric Consult - Data Date of interview: 01/18/18 Admission source: [facility] Identifying data: Readmission to [facility] for this 27 y/o female self -referred for detoxification treatment (crack/cocaine,opioid,cannabis,alcohol, xanax) dependence.Admitted to [address] [place] [address].Patient is single,a mother of two ( children in patrenal custody),homeless and reportedly employed at time of this psychiatric interview. Substance Abuse History: Confirmed by the patient.Details in current [facility] report : Smoking history: Current every day smoker. Have you smoked in the past 12 months: Yes. Aproximately how many cigarettes per day: 40. Hx Chewing Tobacco Use: No. Initiated information on smoking cessation: Yes. 'Breaking Loose' booklet given: 01/17/18. - Substance & Tx. History. Hx Alcohol Use: Yes. Hx Substance Use: Yes. Substance Use Type: Alcohol. Hx Substance Use Treatment: Yes (On suboxone). - Substances Abused. Crack. Route: Smoking. Frequency : 3-6 times per week. Amount used: 1 gram. Age of first use: 22. Date of Last Use: 01/17/18. Alprazolam (Xanax). Route: Oral. Frequency: 1-2 times per week. Amount used: 4 bars. Age of first use: 22. Date of Last Use: . Heroin. Route: Inhalation. Frequency: 1-2 times per week. Amount used : 7 bags. Age of first use: 27. Date of Last Use: 01/12/18. Alcohol. Route: Oral. Frequency: Daily. Amount used: 2 40oz beers, 1 pint whiskey. Age of first use: 14. Date of Last Use: 01/17/18 Medical History: GERD and a history of heart murmur. Psychiatric History: Recent psychiatric hospitalization at [facility] in [facility].Diagnosed with MDD,PTSD,Bipolar Disorder and Anxiety Disorder.Ms Conley declares that, until this [facility] visit, she received her OPD psychiatric services at the [facility] in [facility].Mediated with lamotrigine 100 mg po bid + seroquel 200 mg/hs + zoloft 100 mg/ day.States that she last took these medications 48 hours prior to coming to [facility].Patient admits to one suicide attempt two years ago (wrist-cutting). Physical/Sexual Abuse/Trauma History: Patient declines to discuss this domain. Additional Comment: Urine Drug Screen Results: THC-Marijuana, ALEX-Cocaine, BZO- Benzodiazepines.Noted. Mental Status Exam - Mental Status Exam Alert and Oriented to: Time, Place, Person Cognitive Function: Good Patient Appearance: Well Groomed Mood: Withdrawn, Anxious, Apprehensive Affect: Mood Congruent Patient Behavior: Fatigued, Appropriate, Cooperative Speech Pattern: Clear, Appropriate Voice Loudness: Normal Thought Process: Intact, Goal Oriented Thought Disorder: Not Present Hallucinations: Denies Suicidal Ideation: Denies Homicidal Ideation: Denies Insight/Judgement: Poor Sleep: Poorly, Difficulty falling asleep Appetite: Good Muscle strength/Tone: Normal Gait/Station: Normal Psychiatric Findings - Problem List ([place] 1, 2,3) (1) Opioid dependence with withdrawal Current Visit: Yes Status: Acute (2) Uncomplicated sedative, hypnotic or anxiolytic withdrawal Current Visit: Yes Status: Acute (3) Alcohol dependence with uncomplicated intoxication Current Visit: Yes Status: Acute (4) Cannabis dependence Current Visit: Yes Status: Acute (5) Cocaine dependence Current Visit: Yes Status: Acute (6) Nicotine dependence Current Visit: Yes Status: Acute Qualifiers: Nicotine product type: cigarettes Substance use status: in withdrawal Qualified Code(s): F17.213 - Nicotine dependence, cigarettes, with withdrawal (7) Drug-induced mood disorder Current Visit: Yes Status: Acute (8) Bipolar disorder Current Visit: Yes Status: Chronic Qualifiers: Active/Remission status: in partial remission Most recent bipolar episode type: mixed Qualified Code(s): F31.77 - Bipolar disorder, in partial remission , most recent episode mixed Comment: As per history and self-report.On medications. (9) Insomnia Current Visit: Yes Status: Acute - Initial Treatment Plan Initial Treatment Plan: Psychoeducation.Sleep hygiene.Records from [facility] : revisited.Detoxification in progress.Lamotrigine held until verification (will allow patient to retrieve bottles from [facility]).Seroquel 200 mg po hs + zoloft 100 mg po daily : resumed.Side effects/benefits discussed with the patient.Made aware, in particular, of the risk of Hewitt-Gerald (lamictal),metabolic syndrome and suicidal ideation/attempts (sertraline).No prior history of adverse effects from this regimen (self-report).Consent (verbal) given for continuity of care.Observation.
[2018-01-18] MEDS: QUEtiapine FUMARATE 200 MG TABLET PO SCH (22:08)
[2018-01-18] MEDS: THIAMINE HCL 100 MG TABLET (FP) PO SCH (22:08)
[2018-01-19] MEDS: PRENATAL VITAMINS W/ FOLIC ACID TABLET (FP) PO SCH (10:18)
[2018-01-19] MEDS: SERTRALINE HCL 50 MG TABLET (FP) PO SCH (10:18)
[2018-01-19] MEDS: diazePAM 5 MG TABLET PO SCH ×2 (10:19→22:10)
[2018-01-19] MEDS: NICOTINE 21 MG/24 HOURS TOPICAL PATCH TD SCH (10:19)
[2018-01-19] MEDS: NICOTINE POLACRILEX 4 MG GUM BC PRN ×3 (10:21→19:43)
[2018-01-19] MEDS: diazePAM 5 MG TABLET PO PRN ×2 (15:24→19:43)
--- NOTE | 2018-01-19 16:00 | PN ---
S CIWA - CIWA Score Nausea/Vomitin-No Nausea/No Vomiting Muscle Tremors: 3 Anxiety: 3 Agitation: 3 Paroxysmal Sweats: 1-Minimal Palms Moist Orientation: 0-Oriented Tacttile Disturbances: 1-Very Mild Itch/Numbness Auditory Disturbances: 1-Very Mild Visual Disturbances: 0-None Headache: 0-None Present CIWA-Ar Total Score: 12 BHS Progress Note (SOAP) Subjective: sweat tremor restlessness anxiety reported taking thorazine at home Objective: 01/19/18 16:05 Vital Signs Temperature 97.7 F 01/19/18 13:05 Pulse Rate 70 01/19/18 13:05 Respiratory Rate 18 01/19/18 13:05 Blood Pressure 119/62 01/19/18 13:05 O2 Sat by Pulse Oximetry (%) Laboratory Last Values WBC 7.0 K/mm3 (4.0-10.0) 01/18/18 07:00 RBC 4.19 M/mm3 (3.60-5.2) 01/18/18 07:00 Hgb 13.8 GM/dL (10.7-15.3) 01/18/18 07:00 Hct 41.1 % (32.4-45.2) 01/18/18 07:00 MCV 98.1 fl (80-96) H 01/18/18 07:00 MCH 32.8 pg (25.7-33.7) 01/18/18 07:00 MCHC 33.5 g/dl (32.0-36.0) 01/18/18 07:00 RDW 13.7 % (11.6-15.6) 01/18/18 07:00 Plt Count 220 K/MM3 (134-434) 01/18/18 07:00 MPV 9.1 fl (7.5-11.1) D 01/18/18 07:00 Sodium 142 mmol/L (136-145) 01/18/18 07:00 Potassium 4.1 mmol/L (3.5-5.1) 01/18/18 07:00 Chloride 106 mmol/L (98-107) 01/18/18 07:00 Carbon Dioxide 28 mmol/L (21-32) 01/18/18 07:00 Anion Gap 8 MMOL/L (8-16) 01/18/18 07:00 BUN 9 mg/dL (7-18) 01/18/18 07:00 Creatinine 0.8 mg/dL (0.55-1.02) 01/18/18 07:00 Creat Clearance w eGFR > 60 (>60) 01/18/18 07:00 Random Glucose 81 mg/dL (74-106) 01/18/18 07:00 Calcium 8.6 mg/dL (8.5-10.1) 01/18/18 07:00 Total Bilirubin 0.4 mg/dL (0.2-1.0) 01/18/18 07:00 AST 14 U/L (15-37) L 01/18/18 07:00 ALT 15 U/L (12-78) 01/18/18 07:00 Alkaline Phosphatase 46 U/L (45-117) 01/18/18 07:00 Total Protein 6.0 g/dl (6.4-8.2) L 01/18/18 07:00 Albumin 3.4 g/dl (3.4-5.0) 01/18/18 07:00 Urine Color Straw 01/17/18 18:00 Urine Appearance Clear 01/17/18 18:00 Urine pH 6.0 (5.0-8.0) 01/17/18 18:00 Ur Specific [place] 1.002 (1.001-1.035) 01/17/18 18:00 Urine Protein Negative (NEGATIVE) 01/17/18 18:00 Urine Glucose (UA) Negative (NEGATIVE) 01/17/18 18:00 Urine Ketones Negative (NEGATIVE) 01/17/18 18:00 Urine Blood Negative (NEGATIVE) 01/17/18 18:00 Urine Nitrite Negative (NEGATIVE) 01/17/18 18:00 Urine Bilirubin Negative (<2.0 mg/dL) 01/17/18 18:00 Urine Urobilinogen Negative mg/dL (0.2-1.0) 01/17/18 18:00 Ur Leukocyte Esterase Negative (NEGATIVE) 01/17/18 18:00 RPR Titer Nonreactive (NONREACTIVE) 01/18/18 07:00 lab noted Assessment: 01/19/18 16:06 withdrawal sx bipolar ii Plan: continue detox patient brings up her home medications from the property department will be reconciled by the psychiatrist
[2018-01-19] MEDS: QUEtiapine FUMARATE 200 MG TABLET PO SCH (22:10)
[2018-01-19] MEDS: THIAMINE HCL 100 MG TABLET (FP) PO SCH (22:10)
--- NOTE | 2018-01-20 09:15 | PN ---
Psychiatric Progress Note Vital Signs: Vital Signs Period Temp Pulse Resp BP Sys/Busby Pulse Ox Last 24 Hr 97.6 F-98.2 F 52-92 18-20 101-132/58-77 Date of Session: 01/20/18 Chief Complaint:: mY MEDICATIONS HPI: PATIENT REPORTS TAKINGN PRIOR TO ADMISSION THORAZIN 25MG PO TID FOR AGITATIOIN AND ANXIETY Current Medications: Active Medications Generic Name Dose Route Start Last Admin Trade Name Freq PRN Reason Stop Dose Admin Acetaminophen 650 mg 01/17/18 17:29 Tylenol - PO Q4H PRN FEVER Al Hydroxide/Mg Hydroxide 30 ml 01/17/18 17:29 Mylanta Oral Suspension - PO Q6H PRN DYSPEPSIA Chlorpromazine HCl 25 mg 01/20/18 10:00 Thorazine - PO QID NEHEMIAS Diazepam 10 mg 01/17/18 17:29 01/19/18 19:43 Valium - PO 01/20/18 17:28 10 mg Q4H PRN Administration WITHDRAWAL(CONT SUBST) Diazepam 5 mg 01/19/18 10:00 01/19/18 22:10 Valium - PO 01/20/18 22:01 5 mg BID NEHEMIAS Administration Diazepam 5 mg 01/21/18 10:00 Valium - PO 01/21/18 10:01 DAILY NEHEMIAS Eucalyptus/Menthol/Phenol/Sorbitol 1 each 01/17/18 17:29 Cepastat Lozenge - MM Q4H PRN SORE THROAT Guaifenesin 10 ml 01/17/18 17:29 Robitussin Dm - PO Q6H PRN COUGH Ibuprofen 400 mg 01/17/18 17:29 Motrin - PO Q6H PRN PAIN LEVEL 4-6 Loperamide HCl 4 mg 01/17/18 17:29 Imodium - PO Q6H PRN DIARRHEA Magnesium Citrate 300 ml 01/17/18 17:29 Citroma - PO Q48H PRN CONSTIPATION Magnesium Hydroxide 30 ml 01/17/18 17:29 Milk Of Magnesia - PO DAILY PRN CONSTIPATION Melatonin 5 mg 01/17/18 22:00 Melatonin PO HS PRN INSOMNIA Nicotine 21 mg 01/17/18 17:45 01/19/18 10:19 Nicoderm Patch - TD 21 mg DAILY NEHEMIAS Administration Nicotine Polacrilex 4 mg 01/17/18 17:29 01/19/18 19:43 Nicorette Gum - BC 4 mg Q2H PRN Administration NICOTINE REPLACEMENT RX Multivit/Folic Acid/Iron 1 tab 01/18/18 10:00 01/19/18 10:18 Vitamins (Sjr) - PO 1 tab DAILY NEHEMIAS Administration Pseudoephedrine/Triprolidine 1 combo 01/17/18 17:29 Actifed - PO TID PRN NASAL CONGESTION Quetiapine Fumarate 200 mg 01/18/18 22:00 01/19/18 22:10 Seroquel - PO 200 mg HS NEHEMIAS Administration Sertraline HCl 100 mg 01/19/18 10:00 01/19/18 10:18 Zoloft - PO 100 mg DAILY NEHEMIAS Administration Thiamine HCl 100 mg 01/17/18 22:00 01/19/18 22:10 Vitamin B1 - PO 100 mg HS NEHEMIAS Administration Medication(s) Change(s): THORAZIN 25MG PO TID Mental Status Exam - Mental Status Exam Alert and Oriented to: Person Cognitive Function: Fair Patient Appearance: Unkempt Mood: Anxious, Irritable Affect: Constricted Patient Behavior: Cooperative Speech Pattern: Appropriate Voice Loudness: Normal, Mildly Loud Thought Process: Goal Oriented Thought Disorder: Being Controlled Hallucinations: Denies Suicidal Ideation: Denies Homicidal Ideation: Denies Insight/Judgement: Fair Sleep: Difficulty falling asleep Appetite: Weight loss Muscle strength/Tone: Mild Hypotonicity Gait/Station: Shuffling Additional Comments: THORAZIN 25MG PO TID Psychiatric Treatment Plan - Problem List (1) Alcohol dependence with uncomplicated intoxication Current Visit: Yes (2) Cannabis dependence Current Visit: Yes (3) Cocaine dependence Current Visit: Yes (4) Drug-induced mood disorder Current Visit: Yes (5) Nicotine dependence Current Visit: Yes Qualifiers: Nicotine product type: cigarettes Substance use status: in withdrawal Qualified Code(s): F17.213 - Nicotine dependence, cigarettes, with withdrawal (6) Opioid dependence with withdrawal Current Visit: Yes (7) Uncomplicated sedative, hypnotic or anxiolytic withdrawal Current Visit: Yes (8) Bipolar disorder Current Visit: Yes Qualifiers: Active/Remission status: in partial remission Most recent bipolar episode type: mixed Qualified Code(s): F31.77 - Bipolar disorder, in partial remission , most recent episode mixed Comment: As per history and self-report.On medications. (9) Co-occurrence of multiple psychiatric disorders Current Visit: Yes (10) Weight loss Current Visit: No Initial treatment plan: THORAZIN 25MG PO TID
--- NOTE | 2018-01-20 10:19 | PN ---
BHS Progress Note (SOAP) Subjective: interrupted sleep, sweats, shakes - c/o needing her thorazine Objective: 01/20/18 10:18 Vital Signs Temperature 98.1 F 01/20/18 09:34 Pulse Rate 88 01/20/18 09:34 Respiratory Rate 18 01/20/18 09:34 Blood Pressure 113/74 01/20/18 09:34 O2 Sat by Pulse Oximetry (%) Laboratory Tests 01/17/18 01/18/18 01/18/18 18:00 07:00 07:00 WBC 7.0 RBC 4.19 Hgb 13.8 Hct 41.1 MCV 98.1 H MCH 32.8 MCHC 33.5 RDW 13.7 Plt Count 220 MPV 9.1 D Sodium 142 Potassium 4.1 Chloride 106 Carbon Dioxide 28 Anion Gap 8 BUN 9 Creatinine 0.8 Creat Clearance w eGFR > 60 Random Glucose 81 Calcium 8.6 Total Bilirubin 0.4 AST 14 L ALT 15 Alkaline Phosphatase 46 Total Protein 6.0 L Albumin 3.4 Urine Color Straw Urine Appearance Clear Urine pH 6.0 Ur Specific [place] 1.002 Urine Protein Negative Urine Glucose (UA) Negative Urine Ketones Negative Urine Blood Negative Urine Nitrite Negative Urine Bilirubin Negative Urine Urobilinogen Negative Ur Leukocyte Esterase Negative RPR Titer 01/18/18 07:00 WBC RBC Hgb Hct MCV MCH MCHC RDW Plt Count MPV Sodium Potassium Chloride Carbon Dioxide Anion Gap BUN Creatinine Creat Clearance w eGFR Random Glucose Calcium Total Bilirubin AST ALT Alkaline Phosphatase Total Protein Albumin Urine Color Urine Appearance Urine pH Ur Specific [place] Urine Protein Urine Glucose (UA) Urine Ketones Urine Blood Urine Nitrite Urine Bilirubin Urine Urobilinogen Ur Leukocyte Esterase RPR Titer Nonreactive pt aox3 in nad lying in bed b Assessment: 01/20/18 10:18 withdrawal sx's bipolar Plan: cont. detox increase fluids pysch eval for thorazine d/c in am
[2018-01-20] MEDS: PRENATAL VITAMINS W/ FOLIC ACID TABLET (FP) PO SCH (10:32)
[2018-01-20] MEDS: SERTRALINE HCL 50 MG TABLET (FP) PO SCH (10:32)
[2018-01-20] MEDS: diazePAM 5 MG TABLET PO SCH ×2 (10:32→22:07)
[2018-01-20] MEDS: NICOTINE 21 MG/24 HOURS TOPICAL PATCH TD SCH (10:34)
[2018-01-20] MEDS: chlorproMAZINE HCL 25 MG TABLET PO SCH ×4 (11:15→22:07)
[2018-01-20] MEDS: diazePAM 5 MG TABLET PO PRN (14:38)
[2018-01-20] MEDS: NICOTINE POLACRILEX 4 MG GUM BC PRN ×2 (15:06→20:26)
[2018-01-20] MEDS: QUEtiapine FUMARATE 200 MG TABLET PO SCH (22:07)
[2018-01-20] MEDS: THIAMINE HCL 100 MG TABLET (FP) PO SCH (22:08)
--- NOTE | 2018-01-21 08:45 | DS ---
[facility] Detox Discharge Summary Admission Date: 01/17/18 Discharge Date: 01/21/18 - History Present History: Alcohol Dependence, Sedative Dependence Additional Comments: suboxone maintenance 27 years old female admitted on 01/17/18 for alcohol and benzo withdrawal sx completed detox regimen tolerated well denies alcohol benzo withdrawal sx alert oriented x 3 no acute distress aftercare [facility] Pertinent Past History: last suboxon 10 days ago - Physical Exam Results Vital Signs: Vital Signs Temperature 97.9 F 01/21/18 06:00 Pulse Rate 64 01/21/18 06:00 Respiratory Rate 18 01/21/18 06:00 Blood Pressure 108/57 01/21/18 06:00 O2 Sat by Pulse Oximetry (%) Pertinent Admission Physical Exam Findings: alcohol and benzo withdrawal sx Vital Signs Temperature 97.7 F 01/21/18 08:57 Pulse Rate 62 01/21/18 08:57 Respiratory Rate 18 01/21/18 08:57 Blood Pressure 94/66 01/21/18 08:57 O2 Sat by Pulse Oximetry (%) Laboratory Last Values WBC 7.0 K/mm3 (4.0-10.0) 01/18/18 07:00 RBC 4.19 M/mm3 (3.60-5.2) 01/18/18 07:00 Hgb 13.8 GM/dL (10.7-15.3) 01/18/18 07:00 Hct 41.1 % (32.4-45.2) 01/18/18 07:00 MCV 98.1 fl (80-96) H 01/18/18 07:00 MCH 32.8 pg (25.7-33.7) 01/18/18 07:00 MCHC 33.5 g/dl (32.0-36.0) 01/18/18 07:00 RDW 13.7 % (11.6-15.6) 01/18/18 07:00 Plt Count 220 K/MM3 (134-434) 01/18/18 07:00 MPV 9.1 fl (7.5-11.1) D 01/18/18 07:00 Sodium 142 mmol/L (136-145) 01/18/18 07:00 Potassium 4.1 mmol/L (3.5-5.1) 01/18/18 07:00 Chloride 106 mmol/L (98-107) 01/18/18 07:00 Carbon Dioxide 28 mmol/L (21-32) 01/18/18 07:00 Anion Gap 8 MMOL/L (8-16) 01/18/18 07:00 BUN 9 mg/dL (7-18) 01/18/18 07:00 Creatinine 0.8 mg/dL (0.55-1.02) 01/18/18 07:00 Creat Clearance w eGFR > 60 (>60) 01/18/18 07:00 Random Glucose 81 mg/dL (74-106) 01/18/18 07:00 Calcium 8.6 mg/dL (8.5-10.1) 01/18/18 07:00 Total Bilirubin 0.4 mg/dL (0.2-1.0) 01/18/18 07:00 AST 14 U/L (15-37) L 01/18/18 07:00 ALT 15 U/L (12-78) 01/18/18 07:00 Alkaline Phosphatase 46 U/L (45-117) 01/18/18 07:00 Total Protein 6.0 g/dl (6.4-8.2) L 01/18/18 07:00 Albumin 3.4 g/dl (3.4-5.0) 01/18/18 07:00 Urine Color Straw 01/17/18 18:00 Urine Appearance Clear 01/17/18 18:00 Urine pH 6.0 (5.0-8.0) 01/17/18 18:00 Ur Specific [place] 1.002 (1.001-1.035) 01/17/18 18:00 Urine Protein Negative (NEGATIVE) 01/17/18 18:00 Urine Glucose (UA) Negative (NEGATIVE) 01/17/18 18:00 Urine Ketones Negative (NEGATIVE) 01/17/18 18:00 Urine Blood Negative (NEGATIVE) 01/17/18 18:00 Urine Nitrite Negative (NEGATIVE) 01/17/18 18:00 Urine Bilirubin Negative (<2.0 mg/dL) 01/17/18 18:00 Urine Urobilinogen Negative mg/dL (0.2-1.0) 01/17/18 18:00 Ur Leukocyte Esterase Negative (NEGATIVE) 01/17/18 18:00 RPR Titer Nonreactive (NONREACTIVE) 01/18/18 07:00 lab noted - Treatment Hospital Course: Detox Protocol Followed, Detoxed Safely, Responded well, Discharged Condition Good, Rehab Referral Accepted Patient has Accepted a Rehab Referral to: [email or web address] - Medication Discharge Medications: Ambulatory Orders Sertraline HCl [Zoloft -] 100 mg PO DAILY #30 tablet 08/20/17 Buprenorphine HCl/Naloxone HCl [Suboxone 12 mg-3 mg Sl Film] 1 each SL DAILY 01/26 Lamotrigine [LaMICtal -] 100 mg PO BID 01/17/18 Quetiapine Fumarate [Seroquel -] 200 mg PO HS 01/17/18 Chlorpromazine [Thorazine -] 25 mg PO TID #90 tablet 01/20/18 Omeprazole Magnesium [Prilosec Otc] 20 mg PO DAILY #30 tablet. 01/20/18 - Diagnosis (1) Encounter for monitoring Suboxone maintenance therapy Current Visit: Yes Status: Inactive (2) Nicotine dependence Current Visit: Yes Status: Acute Qualifiers: Nicotine product type: cigarettes Substance use status: in withdrawal Qualified Code(s): F17.213 - Nicotine dependence, cigarettes, with withdrawal (3) Alcohol dependence with uncomplicated intoxication Current Visit: Yes Status: Acute (4) Bipolar disorder Current Visit: Yes Status: Suspected Qualifiers: Active/Remission status: in partial remission Most recent bipolar episode type: mixed Qualified Code(s): F31.77 - Bipolar disorder, in partial remission , most recent episode mixed (5) Weight loss Current Visit: Yes Status: Acute - AMA Did Patient Leave Against Medical Advice: No
[2018-01-21] MEDS: SERTRALINE HCL 50 MG TABLET (FP) PO SCH (09:03)
[2018-01-21] MEDS: PRENATAL VITAMINS W/ FOLIC ACID TABLET (FP) PO SCH (09:04)
[2018-01-21] MEDS: chlorproMAZINE HCL 25 MG TABLET PO SCH ×2 (09:04→14:19)
[2018-01-21] MEDS: NICOTINE 21 MG/24 HOURS TOPICAL PATCH TD SCH (09:05)
[2018-01-21] MEDS: NICOTINE POLACRILEX 4 MG GUM BC PRN ×2 (09:10→12:18)
[2018-01-21] MEDS ORDERED: diazePAM 5 MG TABLET PO SCH (10:00)
[2018-01-21 13:49] VITALS: BP 113/70; PULSE 100; TEMP 98.4
== END 2018-01-21 15:17 | disposition home or self-care (01) | DRG 773 ==
LOC: YASAS 11:12 → Y6N 15:25
PROC: HZ2ZZZZ Detoxification Services for Substance Abuse Treatment (ICD-10-PCS; principal; 2018-01-17)
DX: F11.23 Opioid dependence with withdrawal (principal); F13.230 Sedative, hypnotic or anxiolytic dependence with withdrawal, uncomplicated; F10.220 Alcohol dependence with intoxication, uncomplicated; F14.20 Cocaine dependence, uncomplicated; F12.20 Cannabis dependence, uncomplicated; F17.213 Nicotine dependence, cigarettes, with withdrawal; F19.24 Other psychoactive substance dependence with psychoactive substance-induced mood disorder; F31.77 Bipolar disorder, in partial remission, most recent episode mixed; F43.10 Post-traumatic stress disorder, unspecified; F90.9 Attention-deficit hyperactivity disorder, unspecified type; F41.8 Other specified anxiety disorders; G47.00 Insomnia, unspecified; R01.1 Cardiac murmur, unspecified; Z51.81 Encounter for therapeutic drug level monitoring; Z86.69 Personal history of other diseases of the nervous system and sense organs; Z91.5 Personal history of self-harm; R63.4 Abnormal weight loss; Z68.26 Body mass index [BMI] 26.0-26.9, adult
CPT/HCPCS: 36415; 80053; 81003; 85027; 86593; 93005; 93010

== ENCOUNTER 2022-09-11 22:23 | Inpatient (IN) | payer OTHER ==
[2022-09-11 23:01] VITALS: BMI 27.6
[2022-09-12] MEDS ORDERED: MAG HYDROX/AL HYDROX/SIMETH 30 ML UNIT-DOSE CUP PO PRN (00:12)
[2022-09-12] MEDS ORDERED: IBUPROFEN 400 MG TABLET (FP) PO PRN (00:12)
[2022-09-12] MEDS ORDERED: hydrOXYzine PAMOATE 25 MG CAPSULE (FP) PO PRN (00:12)
[2022-09-12] MEDS ORDERED: BENZOCAINE/MENTHOL (CHLORASEPTIC ) LOZENGE MM PRN (00:12)
[2022-09-12] MEDS ORDERED: guaiFENesin 600 MG TABLET.ER (FP) PO PRN (00:12)
[2022-09-12] MEDS ORDERED: MAGNESIUM HYDROX 2400MG/30ML ORAL SUSPENSION 30 ML CUP PO PRN (00:12)
[2022-09-12] MEDS ORDERED: BENZONATATE 200 MG CAPSULE PO PRN (00:12)
[2022-09-12] MEDS ORDERED: NALOXONE HCL (KLOXXADO) 8 MG SPRAY NS PRN (00:12)
[2022-09-12] MEDS ORDERED: BISMUTH SUBSALICYLATE 524 MG/30 ML PO PRN (00:12)
[2022-09-12] MEDS ORDERED: ONDANSETRON *ODT* 4 MG TABLET SL PRN (00:12)
[2022-09-12] MEDS ORDERED: LOPERAMIDE HCL 2 MG CAPSULE PO PRN (00:12)
[2022-09-12] MEDS ORDERED: NALOXONE HCL 0.4 MG/ML VIAL IM PRN (00:12)
[2022-09-12] MEDS ORDERED: POLYETHYLENE GLYCOL (HEALTHYLAX) 3350 17 GM PACKET PO PRN (00:12)
[2022-09-12] MEDS ORDERED: DICYCLOMINE HCL 10 MG CAPSULE PO PRN (00:12)
[2022-09-12] MEDS ORDERED: LORazepam 1 MG TABLET PO PRN (08:30)
[2022-09-12] MEDS ORDERED: LORazepam 2 MG TABLET PO ONE (09:00)
[2022-09-12] MEDS ORDERED: LORazepam 2 MG TABLET ONE (09:00)
[2022-09-12] MEDS ORDERED: PRENATAL VITAMINS W/ FOLIC ACID TABLET (FP) PO ONE (09:13)
[2022-09-12] MEDS ORDERED: NICOTINE 21 MG/24 HOURS TOPICAL PATCH ONE (09:13)
[2022-09-12] MEDS ORDERED: IBUPROFEN 600 MG TABLET (FP) PO ONE (09:14)
[2022-09-12] MEDS: IBUPROFEN 600 MG TABLET (FP) PO PRN (09:19)
[2022-09-12] MEDS: NICOTINE 21 MG/24 HOURS TOPICAL PATCH TD SCH (09:25)
[2022-09-12] MEDS: methaDONE HCL 40 MG DISPERSABLE TABLET PO SCH (11:35)
[2022-09-12] MEDS: PRENATAL VITAMINS W/ FOLIC ACID TABLET (FP) PO SCH (11:36)
[2022-09-12] MEDS: LORazepam 2 MG TABLET PO SCH ×3 (11:59→22:26)
[2022-09-12] MEDS ORDERED: MELATONIN 5 MG TABLETS PO SCH (22:00)
[2022-09-12] MEDS: THIAMINE HCL 100 MG TABLET (FP) PO SCH (22:25)
[2022-09-12] MEDS: METHOCARBAMOL 500 MG TABLET PO PRN (22:26)
[2022-09-13] MEDS: LORazepam 2 MG TABLET PO SCH ×4 (05:30→22:14)
[2022-09-13] MEDS: methaDONE HCL 40 MG DISPERSABLE TABLET PO SCH (05:30)
[2022-09-13] MEDS: NICOTINE POLACRILEX 2 MG GUM BUC PRN ×3 (05:41→17:32)
[2022-09-13] MEDS: ACETAMINOPHEN 325 MG TABLET (FP) PO PRN ×2 (05:41→17:24)
[2022-09-13] MEDS: IBUPROFEN 600 MG TABLET (FP) PO PRN (07:24)
[2022-09-13] MEDS ORDERED: LURASIDONE HCL 40 MG TABLET PO SCH (10:00)
[2022-09-13] MEDS: SERTRALINE HCL 50 MG TABLET (FP) PO SCH (10:25)
[2022-09-13] MEDS: NICOTINE 21 MG/24 HOURS TOPICAL PATCH TD SCH (10:25)
[2022-09-13] MEDS: PRENATAL VITAMINS W/ FOLIC ACID TABLET (FP) PO SCH (10:25)
[2022-09-13] MEDS: METHOCARBAMOL 500 MG TABLET PO PRN ×2 (10:26→17:23)
[2022-09-13] MEDS: LURASIDONE HCL 40 MG TABLET PO SCH (10:37)
[2022-09-13] MEDS: TOPIRAMATE 100 MG TABLET PO SCH (10:37)
[2022-09-13 10:49] LABS: POTASSIUM 4.2 mmol/L (3.5-5.1)
[2022-09-13 10:52] LABS: ALBUMIN 3.8 g/dl (3.4-5.0); BLOOD UREA NITROGEN 27.7 mg/dL (7-18); HEMATOCRIT 37.3 % (32.4-45.2); HEMOGLOBIN 13.1 GM/dL (10.7-15.3); MCH 33.2 pg (25.7-33.7); MCHC 35.1 g/dl (32.0-36.0); MEAN CELL VOLUME 94.6 fl (80-96); MEAN PLT VOLUME 10.4 fl (7.5-11.1); PLATELET COUNT 195 10^3/uL (134-434); RBC 3.95 M/mm3 (3.60-5.2); RDW 14.7 % (11.6-15.6)
[2022-09-13 10:55] LABS: CREATININE 1.5 mg/dL (0.55-1.3)
[2022-09-13 10:57] LABS: BILIRUBIN,TOTAL 0.6 mg/dL (0.2-1); TOT PROT 6.5 g/dl (6.4-8.2)
[2022-09-13] MEDS ORDERED: QUEtiapine FUMARATE 100 MG TABLET (FP) PO PRN (14:09)
[2022-09-13] MEDS ORDERED: QUEtiapine FUMARATE 100 MG TABLET (FP) PO SCH (22:00)
[2022-09-13] MEDS: THIAMINE HCL 100 MG TABLET (FP) PO SCH (22:13)
[2022-09-13] MEDS: DOXEPIN HCL 25 MG CAPSULE PO SCH (22:15)
[2022-09-14] MEDS: LORazepam 1 MG TABLET PO SCH ×4 (05:30→22:00)
[2022-09-14] MEDS: METHOCARBAMOL 500 MG TABLET PO PRN ×2 (05:31→17:16)
[2022-09-14] MEDS: methaDONE HCL 40 MG DISPERSABLE TABLET PO SCH (05:31)
[2022-09-14] MEDS: NICOTINE POLACRILEX 2 MG GUM BUC PRN ×2 (05:40→10:18)
[2022-09-14] MEDS: LURASIDONE HCL 40 MG TABLET PO SCH (07:44)
[2022-09-14] MEDS: TOPIRAMATE 100 MG TABLET PO SCH (07:44)
[2022-09-14] MEDS: SERTRALINE HCL 50 MG TABLET (FP) PO SCH (10:11)
[2022-09-14] MEDS: PRENATAL VITAMINS W/ FOLIC ACID TABLET (FP) PO SCH (10:12)
[2022-09-14] MEDS: ACETAMINOPHEN 325 MG TABLET (FP) PO PRN ×2 (10:16→17:16)
[2022-09-14] MEDS: NICOTINE 21 MG/24 HOURS TOPICAL PATCH TD SCH (10:16)
[2022-09-14] MEDS: THIAMINE HCL 100 MG TABLET (FP) PO SCH (21:55)
[2022-09-14] MEDS: DOXEPIN HCL 25 MG CAPSULE PO SCH (21:56)
[2022-09-15] MEDS ORDERED: LORazepam 0.5 MG TABLET PO PRN
[2022-09-15] MEDS: methaDONE HCL 40 MG DISPERSABLE TABLET PO SCH (05:16)
[2022-09-15] MEDS: LORazepam 0.5 MG TABLET PO SCH ×2 (05:16→10:08)
[2022-09-15] MEDS: ACETAMINOPHEN 325 MG TABLET (FP) PO PRN (05:19)
[2022-09-15] MEDS: METHOCARBAMOL 500 MG TABLET PO PRN (05:21)
[2022-09-15] MEDS: LURASIDONE HCL 40 MG TABLET PO SCH (08:21)
[2022-09-15] MEDS: TOPIRAMATE 100 MG TABLET PO SCH (08:21)
[2022-09-15] MEDS: NICOTINE 21 MG/24 HOURS TOPICAL PATCH TD SCH (09:18)
[2022-09-15] MEDS: PRENATAL VITAMINS W/ FOLIC ACID TABLET (FP) PO SCH (09:19)
[2022-09-15] MEDS: SERTRALINE HCL 50 MG TABLET (FP) PO SCH (09:19)
[2022-09-15 09:41] VITALS: BP 113/82; PULSE 101; RESP 20; TEMP 98.1
[2022-09-15 11:40] LABS: EPI CELLS >36 /uL (0-25.1); HYALINE CASTS 6 /uL (0-3.1); PH,URINE 6.5 (5.0-8.0); URINE APPEARANCE CLOUDY; URINE BACTERIA 1306 /uL (0-1359); URINE BILIRUBIN NEGATIVE (NEGATIVE); URINE COLOR YELLOW; URINE GLUCOSE (UA) NEGATIVE (NEGATIVE); URINE KETONE TRACE (NEGATIVE); URINE LEUK ESTERASE 3+ (NEGATIVE); URINE NITRITE NEGATIVE (NEGATIVE); URINE PROTEIN TRACE (NEGATIVE); URINE RBC 38 /uL (0-23.9); URINE UROBILINOGEN 0.2 mg/dL (0.2-1.0); URINE WBC 358 /uL (0-25.8)
[2022-09-16] MEDS ORDERED: LORazepam 0.5 MG TABLET PO ONE (05:00)
== END 2022-09-15 10:12 | disposition home or self-care (01) | DRG 773 ==
LOC: YASAS 22:23 → Y6N 09-12 10:59 → UNDOADMIN 09-12 10:59
PROVIDERS: ADMIT Allergy & Immunology; ATTEND Surgery
PROC: HZ2ZZZZ Detoxification Services for Substance Abuse Treatment (ICD-10-PCS; principal; 2022-09-12)
DX: F11.23 Opioid dependence with withdrawal (principal); F14.20 Cocaine dependence, uncomplicated; F13.20 Sedative, hypnotic or anxiolytic dependence, uncomplicated; F17.210 Nicotine dependence, cigarettes, uncomplicated; F19.282 Other psychoactive substance dependence with psychoactive substance-induced sleep disorder; F19.24 Other psychoactive substance dependence with psychoactive substance-induced mood disorder; F31.77 Bipolar disorder, in partial remission, most recent episode mixed; J45.909 Unspecified asthma, uncomplicated; K21.9 Gastro-esophageal reflux disease without esophagitis; Z62.810 Personal history of physical and sexual abuse in childhood; Z86.59 Personal history of other mental and behavioral disorders; Z28.310 Unvaccinated for COVID-19; Z28.9 Immunization not carried out for unspecified reason
CPT/HCPCS: 36415; 80053; 81003; 81025; 85027; 86780; 93005; 93010; C9803-CS; U0003; U0005

== ENCOUNTER 2022-12-09 09:48 | Inpatient (IN) | payer OTHER ==
[2022-12-09 12:00] VITALS: BMI 23.8
[2022-12-09] MEDS ORDERED: MAG HYDROX/AL HYDROX/SIMETH 30 ML UNIT-DOSE CUP PO PRN (13:26)
[2022-12-09] MEDS ORDERED: IBUPROFEN 400 MG TABLET (FP) PO PRN (13:26)
[2022-12-09] MEDS ORDERED: MAGNESIUM HYDROX 2400MG/30ML ORAL SUSPENSION 30 ML CUP PO PRN (13:26)
[2022-12-09] MEDS ORDERED: NALOXONE HCL (KLOXXADO) 8 MG SPRAY NS PRN (13:26)
[2022-12-09] MEDS ORDERED: ONDANSETRON *ODT* 4 MG TABLET SL PRN (13:26)
[2022-12-09] MEDS ORDERED: POLYETHYLENE GLYCOL (HEALTHYLAX) 3350 17 GM PACKET PO PRN (13:26)
[2022-12-09] MEDS ORDERED: METHOCARBAMOL 500 MG TABLET PO PRN (13:26)
[2022-12-09] MEDS ORDERED: DICYCLOMINE HCL 10 MG CAPSULE PO PRN (13:26)
[2022-12-09] MEDS ORDERED: guaiFENesin 600 MG TABLET.ER (FP) PO PRN (13:26)
[2022-12-09] MEDS ORDERED: LOPERAMIDE HCL 2 MG CAPSULE PO PRN (13:26)
[2022-12-09] MEDS ORDERED: IBUPROFEN 600 MG TABLET (FP) PO PRN (13:26)
[2022-12-09] MEDS ORDERED: BISMUTH SUBSALICYLATE 262 MG/15 ML BTL PO PRN (13:26)
[2022-12-09] MEDS ORDERED: BENZONATATE 200 MG CAPSULE PO PRN (13:26)
[2022-12-09] MEDS ORDERED: BENZOCAINE/MENTHOL (CHLORASEPTIC ) LOZENGE MM PRN (13:26)
[2022-12-09] MEDS ORDERED: hydrOXYzine PAMOATE 25 MG CAPSULE (FP) PO PRN (13:26)
[2022-12-09] MEDS ORDERED: NALOXONE HCL 0.4 MG/ML VIAL IM PRN (13:26)
[2022-12-09] MEDS ORDERED: PRENATAL VITAMINS W/ FOLIC ACID TABLET (FP) PO ONE (14:21)
[2022-12-09] MEDS: PRENATAL VITAMINS W/ FOLIC ACID TABLET (FP) PO SCH (14:25)
[2022-12-09] MEDS: diazePAM 5 MG TABLET PO SCH ×2 (17:11→22:32)
[2022-12-09] MEDS: ACETAMINOPHEN 325 MG TABLET (FP) PO PRN (17:12)
[2022-12-09] MEDS: MELATONIN 5 MG TABLETS PO SCH (22:31)
[2022-12-09] MEDS: THIAMINE HCL 100 MG TABLET (FP) PO SCH (22:31)
[2022-12-10] MEDS: diazePAM 5 MG TABLET PO SCH ×4 (05:23→22:19)
[2022-12-10] MEDS ORDERED: methaDONE HCL 10 MG TABLET PO SCH (07:40)
[2022-12-10] MEDS: PRENATAL VITAMINS W/ FOLIC ACID TABLET (FP) PO SCH (10:01)
[2022-12-10] MEDS: NICOTINE 21 MG/24 HOURS TOPICAL PATCH TD SCH (10:03)
[2022-12-10 11:05] LABS: HEMATOCRIT 39.3 % (32.4-45.2); HEMOGLOBIN 13.8 GM/dL (10.7-15.3); MCH 33.1 pg (25.7-33.7); MCHC 35.2 g/dl (32.0-36.0); MEAN CELL VOLUME 93.8 fl (80-96); MEAN PLT VOLUME 10.8 fl (7.5-11.1); PLATELET COUNT 179 10^3/uL (134-434); RBC 4.18 M/mm3 (3.60-5.2); RDW 12.9 % (11.6-15.6); WHITE BLOOD COUNT 6.4 K/mm3 (4.0-10.0)
[2022-12-10 11:22] LABS: POTASSIUM 4.2 mmol/L (3.5-5.1)
[2022-12-10 11:39] LABS: CALCIUM 9.4 mg/dL (8.5-10.1)
[2022-12-10 11:40] LABS: ALBUMIN 3.9 g/dl (3.4-5.0); BLOOD UREA NITROGEN 10.5 mg/dL (7-18)
[2022-12-10 11:45] LABS: CREATININE 1.2 mg/dL (0.55-1.3)
[2022-12-10 11:47] LABS: TOT PROT 6.4 g/dl (6.4-8.2)
[2022-12-10] MEDS: THIAMINE HCL 100 MG TABLET (FP) PO SCH (22:18)
[2022-12-10] MEDS: QUEtiapine FUMARATE 100 MG TABLET (FP) PO SCH (22:18)
[2022-12-10] MEDS: MELATONIN 5 MG TABLETS PO SCH (22:18)
[2022-12-10] MEDS: ACETAMINOPHEN 325 MG TABLET (FP) PO PRN (22:19)
[2022-12-11] MEDS: diazePAM 5 MG TABLET PO SCH ×3 (05:16→22:09)
[2022-12-11] MEDS: PRENATAL VITAMINS W/ FOLIC ACID TABLET (FP) PO SCH (09:55)
[2022-12-11] MEDS: NICOTINE 21 MG/24 HOURS TOPICAL PATCH TD SCH (09:59)
[2022-12-11] MEDS: diazePAM 5 MG TABLET PO PRN ×2 (09:59→19:53)
[2022-12-11] MEDS: QUEtiapine FUMARATE 100 MG TABLET (FP) PO SCH (22:07)
[2022-12-11] MEDS: MELATONIN 5 MG TABLETS PO SCH (22:07)
[2022-12-11] MEDS: THIAMINE HCL 100 MG TABLET (FP) PO SCH (22:07)
[2022-12-12] MEDS: diazePAM 5 MG TABLET PO SCH ×2 (05:35→17:29)
[2022-12-12] MEDS: PRENATAL VITAMINS W/ FOLIC ACID TABLET (FP) PO SCH (10:00)
[2022-12-12] MEDS: NICOTINE 21 MG/24 HOURS TOPICAL PATCH TD SCH (10:00)
[2022-12-12] MEDS: diazePAM 5 MG TABLET PO PRN (10:00)
[2022-12-12] MEDS: ACETAMINOPHEN 325 MG TABLET (FP) PO PRN (17:29)
[2022-12-12] MEDS: MELATONIN 5 MG TABLETS PO SCH (22:28)
[2022-12-12] MEDS: THIAMINE HCL 100 MG TABLET (FP) PO SCH (22:28)
[2022-12-12] MEDS: QUEtiapine FUMARATE 100 MG TABLET (FP) PO SCH (22:30)
[2022-12-13] MEDS ORDERED: diazePAM 5 MG TABLET PO ONE (06:00)
[2022-12-13 06:21] VITALS: BP 104/73; PULSE 70; RESP 16; TEMP 98.5
[2022-12-13] MEDS: PRENATAL VITAMINS W/ FOLIC ACID TABLET (FP) PO SCH (10:01)
[2022-12-13] MEDS: NICOTINE 21 MG/24 HOURS TOPICAL PATCH TD SCH (10:01)
== END 2022-12-13 10:00 | disposition home or self-care (01) | DRG 773 ==
LOC: YASAS 09:48 → Y6N 14:27
PROVIDERS: ADMIT Allergy & Immunology; ATTEND Surgery
PROC: HZ2ZZZZ Detoxification Services for Substance Abuse Treatment (ICD-10-PCS; principal; 2022-12-09)
DX: F11.23 Opioid dependence with withdrawal (principal); F13.230 Sedative, hypnotic or anxiolytic dependence with withdrawal, uncomplicated; F14.20 Cocaine dependence, uncomplicated; F12.20 Cannabis dependence, uncomplicated; F17.210 Nicotine dependence, cigarettes, uncomplicated; F31.77 Bipolar disorder, in partial remission, most recent episode mixed; F43.10 Post-traumatic stress disorder, unspecified; F19.982 Other psychoactive substance use, unspecified with psychoactive substance-induced sleep disorder; F19.94 Other psychoactive substance use, unspecified with psychoactive substance-induced mood disorder; F19.980 Other psychoactive substance use, unspecified with psychoactive substance-induced anxiety disorder; J45.909 Unspecified asthma, uncomplicated; K21.9 Gastro-esophageal reflux disease without esophagitis; G47.00 Insomnia, unspecified; R01.1 Cardiac murmur, unspecified; Z28.310 Unvaccinated for COVID-19; Z62.810 Personal history of physical and sexual abuse in childhood; Z86.69 Personal history of other diseases of the nervous system and sense organs; Z56.0 Unemployment, unspecified; Z59.00 Homelessness unspecified
CPT/HCPCS: 36415; 80053; 80305; 81025; 85027; 86780; 87635; 87811